=== PATIENT | male | born 1980 | race Caucasian/White ===

== ENCOUNTER 2020-10-19 10:46 | Outpatient (REF) | payer OTHER, SELFPAY ==
--- NOTE | ~2020-10-19 | XR_ITS ---
EXAMINATION: XR SHOULDER, LEFT CLINICAL INFORMATION: Left shoulder pain. COMPARISON: None. TECHNIQUE: AP external rotation, Grashey, scapular Y, and axillary views of the left shoulder. FINDINGS: The bones and soft tissues are normal. No fracture. Glenohumeral and acromioclavicular alignment is anatomic with normal joint space. No abnormal soft tissue calcifications. XR/XR shoulder LT min 2V IMPRESSION: Unremarkable examination.
== END 2020-10-19 10:47 | disposition home or self-care (01) ==
LOC: HO.HMGCX 10:46
PROVIDERS: PCP Nurse Practitioner Family; Visit Provider Nurse Practitioner Family
DX: M25.512 Pain in left shoulder (principal)
CPT/HCPCS: 73030

== ENCOUNTER 2020-10-28 07:29 | Outpatient (REF) | payer OTHER, SELFPAY ==
[2020-10-28 12:12] LABS: TSH reflex Free T4 1.66 uIU/mL (0.32-4.0)
[2020-10-28 12:16] LABS: Alanine Aminotransferase 22 U/L (0-40); Albumin Level 4.5 g/dL (3.5-5.0); Alkaline Phosphatase 72 U/L (39-117); Anion Gap 14 (12-20); Aspartate Amino Transferase 19 U/L (5-37); Bilirubin Total 0.5 mg/dL (0.0-1.0); Blood Urea Nitrogen 33 mg/dL (9-16); Calcium 9.3 mg/dL (8.4-10.2); Carbon Dioxide 24 mmol/L (22-29); Chloride 102 mmol/L (96-108); Cholesterol 192 mg/dL; Estimated Glomerular Filt Rate 56; Glucose Fasting 76 mg/dL (60-99); HDL Cholesterol 36 mg/dL; LDL Cholesterol Calculated 135 mg/dl; Potassium 4.3 mmol/L (3.3-5.1); Sodium 136 mmol/L (135-145); Total Protein 7.6 g/dL (6.5-8.0); Triglycerides 106 mg/dL
== END 2020-10-28 07:30 | disposition home or self-care (01) ==
LOC: HO.HMGCLDS 07:29
PROVIDERS: PCP Nurse Practitioner Family; Visit Provider Nurse Practitioner Family
DX: Z00.00 Encounter for general adult medical examination without abnormal findings (principal)
CPT/HCPCS: 36415; 80053; 80061; 84443

== ENCOUNTER 2020-12-01 13:00 | Outpatient (RCR) | payer OTHER, SELFPAY ==
--- NOTE | 2020-11-17 14:25 | MHC.PT.EP ---
[facility] [place] Office [place] Office [place] Office [address] Pepe Hightower [address] [phone] F: [phone] F: [phone] F: [phone] F: [phone] Physical Therapy Plan of Care Date of Evaluation: Date of Surgery: Diagnosis: Pain in L shoulder. 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 Pt is deemed an appropriate candidate to receive skilled PT in order to address his physical limitations to improve his functional ability. Frequency and Duration: The patient will be seen 2 x / wk x 5 wks. Short Term Goals: Initiate HEP with evidence of compliance. Full L UE AROM. L UE radicular Sx abolished. [employer] Goals: I with HEP. Pt will be able to place objects on high shelf with managed Sx; initial unable without compensation and pain. Improve L shoulder ER MMT to > 4/5; initial 4- and painful. Pt will report no longer painful while driving. Treatment Plan: Modalities to reduce pain, spasms and effusion. Manual therapy to restore motion and function. Therapeutic exercise to improve strength and flexibility. Neuromuscular re-education for posture and balance. Therapeutic activities to return to functional activities of daily living. Electronically signed by: Xu Vela PT. Please sign and return to therapist. Thank you for your referral.
--- NOTE | 2021-03-31 16:27 | MHC.PT.DC ---
[facility] [place] Office [place] Office [place] Office [address] Pepe Hightower [address] [phone] F: [phone] F: [phone] F: [phone] F: [phone] Physical Therapy Discharge Report Diagnosis: Pain in L shoulder. Date of Surgery: Date of Evaluation: 11/17/20 Date of Discharge: Treatments to Date: 3 Cancellations to Date: 4 No Shows to Date: 2 Discharge Status: Visit Non-compliance Discharge Summary: Van had made some progress in therapy however he has been DC'd per [facility] attendance policy. Electronically signed by: Xu Vela PT. Please sign and return to therapist. Thank you for your referral.
== END 2021-03-31 16:27 | disposition home or self-care (01) ==
LOC: HO.PTCHIC 13:00
PROVIDERS: PCP Nurse Practitioner Family; Visit Provider Nurse Practitioner Family
DX: M25.512 Pain in left shoulder (principal)
CPT/HCPCS: 97110; 97140; 97161